=== PATIENT | female | born 1985 | race Caucasian/White ===

== ENCOUNTER 2024-07-15 10:29 | Outpatient (CLI) | payer BC, SELFPAY ==
--- NOTE | ~2024-07-15 | CT_ITS ---
CT of the Abdomen and Pelvis: Indication: Abdominal pain Technique: 2.5 mm axial scans were obtained through the abdomen and pelvis following intravenous adm inistration of 100 cc of Omnipaque 350. Dose reduction technique was used on this scan by utilizing a utomated exposure control and iterative reconstruction technique. The dose-length product (DLP) was 3 77.53 mGy-cm. Findings: Scans through the lung bases are unremarkable. The liver, spleen, pancreas, gallbladder, adrenals and kidneys are within normal limits. No evidence of aortic aneurysm. No lymphadenopathy. No bowel obstruction or bowel wall thickening. There is no evidence to suggest acute appendicitis. Images through the pelvis were performed. Urinary bladder unremarkable. No pelvic mass seen. Impression: No significant abnormalities seen. Reviewed, dictated and finalized at [facility]. SUPPORT SPECIALIST Impression: No significant abnormalities seen.
--- OUTSIDE RECORDS SUMMARY | 2024-07-15 11:32 | XMS_ITS | Clinical Summary ---
Author Organization [facility] Address [address] [place] [address]. 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 06/20/2023 Active Active Problems Problem Noted Date Diagnosed Date Acne vulgaris 11/16/2011 Pityriasis versicolor 11/16/2011 Encounters Date Type Department Care Team Description 05/28/2024 9:45 AM LATHE SETUP OPERATOR - 05/28/2024 11:[address] [facility] Hospital Encounter [facility] [address] [place] [id number] Bala Singleton, [place] Discharge Disposition: Home or Self Care (Routine Discharge) 05/28/2024 9:40 AM LATHE SETUP OPERATOR - 05/28/2024 9:44 AM LATHE SETUP OPERATOR Hospital Encounter [facility] [address] [place] [id number] Bala Singleton, PA Discharge Disposition: Home or Self Care (Routine Discharge) 05/28/2024 9:00 AM LATHE SETUP OPERATOR Office Visit [facility] Family & Internal Medicine [address] [id number] Bala Singleton, [place] Pain (Below left rib cage-x3 months-also tightness to neck/throat-x 3 months) 05/28/2024 Travel from Last 3 Months Family History Medical History Relation Comments Suicidality Father Cancer Maternal Grandfather Rheumatoid Arthritis Maternal Grandfather Heart Disease Maternal Grandmother Relation Status Comments Father Maternal Grandfather Maternal Grandmother Alive Mother Alive Social History Tobacco Use Types Packs/Day Years Used Date Smoking Tobacco: Never Passive Smoke Exposure: Never Smokeless Tobacco: Never Tobacco Cessation:Counseling Given: No Alcohol Use Standard Drinks/Week Comments Yes 0 (1 standard drink = 0.6 oz pur e alcohol) PHQ-2 Answer Date Recorded Patient Health Questionnaire-2 Score 0 05/28/2024 Comments Unknown Sex and Gender Information Value Date Recorded Sex Assigned at Not on file Legal Sex Female 8:09 PM CDT Gender Identity Not on file Sexual Orientation Not on file Last Filed Vital Signs Vital Sign Reading Time Taken Comments Blood Pressure 117/63 05/28/2024 9:05 AM LATHE SETUP OPERATOR Pulse 72 05/28/2024 9:05 AM LATHE SETUP OPERATOR Temperature 36.5 ??C (97.7 ??F) 05/28/2024 9:05 AM CS T Respiratory Rate 20 05/28/2024 9:05 AM LATHE SETUP OPERATOR Oxygen Saturation 99% 05/28/2024 9:05 AM LATHE SETUP OPERATOR Inhaled Oxygen Concentration - - Weight 71.2 kg (157 lb) 05/28/2024 9:05 AM LATHE SETUP OPERATOR Height 162.6 cm (5' 4 ) 05/28/2024 9:05 AM LATHE SETUP OPERATOR Body Mass Index 26.95 05/28/2024 9:05 AM LATHE SETUP OPERATOR Plan of Treatment Health Maintenance Due Date Last Done Comments Cervical Cancer Screening Pa p Smear (Age 30 to 64) Every 3 Years 1984 Annual Physical 1987 Hepatitis C 2002 DTaP, Tdap and Td Vaccines ( 1 - Tdap) 2003 Hepatitis B Vaccines (1 of 3 - 19+ 3-dose series) 2003 Cervical Cancer Screening Pa p with HPV Testing (Age 30 to 64) Every 5 Years 2014 Cervical Cancer Screening with HPV 2014 COVID-19 Vaccine (2023-2 5 season) 2024 Influenza Adult (#1) 2024 PHQ-2 (Physician [place]) 06/18/2024 05/28/2024 Mammogram Screening 2024 PHQ-2 (Physician [place]) 05/28/2025 05/28/2024 HPV Vaccines Aged Out No longer eligi ble based on patient's age to complete this topic Meningococcal B Vaccine Aged Out No l onger eligible based on patient's age to complete this topic Meningococcal Vaccine Aged Out No marlene roselia eligible based on patient's age to complete this topic Pneumococcal Vaccine: Pediat rics (0 to 5 Years) and At-Risk Patients (6 to 64 Years) Aged Out No longer eligi ble based on patient's age to complete this topic RSV Immunizations Under 20 Months Aged Out No longer eligible based on patient's age to complete this topic Procedures Procedure Name Priority Date/Time Associated Diagnosis Comments XR CHEST PA+LAT STAT 05/28/2024 10:26 AM LATHE SETUP OPERATOR Left-sided chest wall pain TSH W/REFLEX Routine 05/28/2024 9:54 AM LATHE SETUP OPERATOR Neck tightness LIPASE Routine 05/28/2024 9:54 AM LATHE SETUP OPERATOR LUQ pain Neck tightness Left-sided chest wall pain COMPREHENSIVE METABOLIC PANEL Routine 05/28/2024 9:54 AM LATHE SETUP OPERATOR LUQ pain Neck tightness Left-sided chest wall pain CBC W/DIFF AUTOMATED Routine 05/28/2024 9:54 AM LATHE SETUP OPERATOR LUQ pain Neck tightness Left-sided chest wall pain from Last 3 Months Results * XR CHEST PA+LAT (05/28/2024 10:26 AM LATHE SETUP OPERATOR) Anatomical Region Laterality Modality Chest Radiographic Tanja ging 05/28/2024 10:3 3 AM LATHE SETUP OPERATOR Impressions 05/28/2024 10:34 AM LATHE SETUP OPERATOR IMPRESSION: No acute cardiopulmonary abnormality. Ordered By: BALA SINGLETON Interpreted By: Taz Montez MD, 05/28/2024 10:33 AM Narrative 05/28/2024 10:34 AM LATHE SETUP OPERATOR [facility] [address] [place] [address] Procedure(s): XR CHEST PA+LAT Date of service: 05/28/2024 9:46 AM Provided clinical information: 38 years, Female, left ??lower chest wasll pain ?? Procedure and materials: PA and lateral Comparison studies: None. Findings: ?? Cardiac silhouette is within normal limits. The lungs expanded and clear of any consolidations. No effusions. Procedure Note Taz Montez MD - 05/28/2024 [facility] [address] [facility] [place] [address] Procedure(s): XR CHEST PA+LAT Date of service: 05/28/2024 9:46 AM Provided clinical information: 38 years, Female, left lower chest wasllpain Procedure and materials: PA and lateral Comparison studies: None. Findings: Cardiac silhouette is within normal limits. The lungs expanded and clearof any consolidations. No effusions. IMPRESSION: No acute cardiopulmonary abnormality. Ordered By: BALA SINGLETON Interpreted By: Taz Montez MD, 05/28/2024 10:33 AM [facility] Final Result * TSH W/REFLEX (05/28/2024 9:54 AM LATHE SETUP OPERATOR) Pathologist [facility] TSH 2.770 0.358 - 3.74 uIU/ML 05/28/2024 10:32 AM LATHE SETUP OPERATOR [facility] Comment: HIGH DOSES OF BIOTIN MAY INTERFERE WITH THIS TEST RESULT. CORRELATION TO CLINICAL HISTORY AND PRESENTATION RECOMMENDED. FREE T4 NOT INDICATED 05/28/2024 9:54 AM LATHE SETUP OPERATOR us [facility] Final Result [facility] [address] [place] [address], [place] [phone] * COMPREHENSIVE METABOLIC PANEL (05/28/2024 9:54 AM LATHE SETUP OPERATOR) GLUCOSE 93 70 - 99 MG/DL 05/28/2024 10:32 AM [facility] BUN 16 7 - 18 MG/DL 05/28/2024 10:32 AM [facility] CREATININE S/P/B 0.74 0.55 - 1.02 MG/DL 05/28/2024 10:32 AM [facility] SODIUM S/P/B 139 136 - 145 MMOL/L 05/28/2024 10:32 AM [facility] POTASSIUM S/P/B 4.1 3.5 - 5.1 MMOL/L 05/28/2024 10:32 AM [facility] CHLORIDE S/P/B 104 100 - 108 MMOL/L 05/28/2024 10:32 AM [facility] CO2 29.2 21 - 32 MMOL/L 05/28/2024 10:32 AM [facility] CALCIUM S/P/B 8.9 8.5 - 10.1 MG/DL 05/28/2024 10:32 AM [facility] BILIRUBIN TOTAL S/P/B 0.4 0.2 - 1.2 MG/DL 05/28/2024 10:32 AM [facility] TOTAL PROTEIN S/P/B 7.6 6.4 - 8.2 G/DL 05/28/2024 10:32 AM [facility] ALBUMIN S/P/B 3.9 3.4 - 5.0 G/DL 05/28/2024 10:32 AM [facility] AST 23 15 - 37 U/L 05/28/2024 10:32 AM [facility] ALT 33 14 - 55 U/L 05/28/2024 10:32 AM [facility] ALKALINE PHOSPHATASE S/P/B 61 50 - 136 U/L 05/28/2024 10:32 AM [facility] ANION GAP 5.8 5 - 15 MMOL/L 05/28/2024 10:32 AM [facility] BUN CREATININE RATIO 21.6 6 - 26 05/28/2024 10:32 AM [facility] A/G RATIO 1.1 1.0 - 2.0 RATIO 05/28/2024 10:32 AM [facility] GFR ESTIMATE >90 >90 ML/MIN/1.7 3 M2 05/28/2024 10:32 AM [facility] Comment: NOTE: eGFR is not calculated for patients <18 years of age. This is an estimated GFR calculation using the new CKD EPI creatinine equation without race and so does not require a correction factor for race. This estimated GFR should not be used for calculating drug doses. 05/28/2024 9:54 AM LATHE SETUP OPERATOR us [facility] Final Result [facility] [address] [place] [address], * (ABNORMAL) CBC W/DIFF AUTOMATED (05/28/2024 9:54 AM LATHE SETUP OPERATOR) WBC 6.78 4.4 - 11.0 x10'3/uL 05/28/2024 10:08 AM [facility] RBC 4.72 4.50 - 5.10 x10'6/uL 05/28/2024 10:08 AM [facility] HGB 13.8 12.3 - 15.3 G/DL 05/28/2024 10:08 AM [facility] HCT 41.3 35.9 - 44.6 % 05/28/2024 10:08 AM [facility] MCV 87.5 80.0 - 96.0 FL 05/28/2024 10:08 AM [facility] MCH 29.2 25.3 - 30.9 PG 05/28/2024 10:08 AM [facility] MCHC 33.4 31.0 - 34.1 G/DL 05/28/2024 10:08 AM [facility] RDW 12.7 12.4 - 15.1 % 05/28/2024 10:08 AM [facility] PLT 346 151 - 353 x10'3/uL 05/28/2024 10:08 AM [facility] MPV 10.0 9.6 - 12.0 FL 05/28/2024 10:08 AM [facility] RBC MORPHOLOGY NORMAL 05/28/2024 10:08 AM [facility] PLT MORPH. NORMAL 05/28/2024 10:08 AM [facility] WBC MORPHOLOGY NORMAL 05/28/2024 10:08 AM [facility] LYMPHOCYTES % 27.7 15.8 - 45.0 % 05/28/2024 10:08 AM [facility] NEUTROPHILS % 63.0 42.1 - 71.9 % 05/28/2024 10:08 AM [facility] MONOCYTES % 5.5(L) 5.7 - 12.5 % 05/28/2024 10:08 AM [facility] EOSINOPHILS 2.8 0.0 - 5.6 % 05/28/2024 10:08 AM [facility] BASOPHILS 0.7 0.0 - 1.3 % 05/28/2024 10:08 AM [facility] ABS. NEUTROPHILS 4.27 1.40 - 6.00 x10'3/uL 05/28/2024 10:08 AM LATHE SETUP OPERATOR [facility] IMMATURE GRANS % 0.3 0.0 - 0.5 % 05/28/2024 10:08 AM [facility] ABS. LYMPHOCYTES 1.88 0.80 - 4.70 x10'3/uL 05/28/2024 10:08 AM [facility] 05/28/2024 9:54 AM LATHE SETUP OPERATOR [facility] Final Result [facility] [address] [place] [address], [place] [phone] * LIPASE (05/28/2024 9:54 AM LATHE SETUP OPERATOR) LIPASE 39 16 - 77 UNITS/L 05/28/2024 10:32 AM LATHE SETUP OPERATOR [facility] 05/28/2024 9:54 AM LATHE SETUP OPERATOR [facility] Final Result Performing Organization Address City/[facility]/ZIP Co de Phone Number [facility] [address] [place] [address], [place] [phone] from Last 3 Months Insurance Care Teams 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
== END 2024-07-15 10:30 | disposition home or self-care (01) ==
PROVIDERS: PCP Physician Assistant Medical; Visit Provider Nurse Practitioner
DX: R10.813 Right lower quadrant abdominal tenderness (principal)
CPT/HCPCS: 74177; Q9967